=== PATIENT | male | born 1990 | race African-American/Black ===

== ENCOUNTER 2017-09-01 20:49 | Emergency (ER) | payer OTHER ==
[~2017-09-01] VITALS: Ht 180.3 cm; Wt 70.6 kg
[2017-09-01 20:56] VITALS: BP 118/83; PULSE 80; RESP 14; TEMP 98.9; O2SAT 100
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
[2017-09-01] MEDS ORDERED: MOBI15TA PO (23:04)
[2017-09-01] MEDS ORDERED: ROBA750T PO (23:04)
== END 2017-09-01 23:12 | disposition home or self-care (01) ==
LOC: PHEFT 20:49
DX: S16.1XXA Strain of muscle, fascia and tendon at neck level, initial encounter (principal); S29.019A Strain of muscle and tendon of unspecified wall of thorax, initial encounter; S39.012A Strain of muscle, fascia and tendon of lower back, initial encounter; M25.511 Pain in right shoulder; Z72.0 Tobacco use; V89.2XXA Person injured in unspecified motor-vehicle accident, traffic, initial encounter
CPT/HCPCS: 71045; 72040; 72072; 72100; 99284